=== PATIENT | female | born 1960 | race African-American/Black ===

== ENCOUNTER 2016-08-27 12:22 | Emergency (ER) | payer SELFPAY | END 2016-08-27 13:42 | disposition home or self-care (01) | LOC: EDSEX 12:22 → D.ER 12:22 | DX: L50.9 Urticaria, unspecified (principal); E05.90 Thyrotoxicosis, unspecified without thyrotoxic crisis or storm; K21.9 Gastro-esophageal reflux disease without esophagitis; I10 Essential (primary) hypertension; G47.00 Insomnia, unspecified ==

== ENCOUNTER 2016-08-28 23:18 | Emergency (ER) | payer MEDICAID | END 2016-08-29 01:00 | disposition home or self-care (01) | LOC: EDSEX 23:18 → D.ER 23:18 | DX: T78.40XA Allergy, unspecified, initial encounter (principal); X58.XXXA Exposure to other specified factors, initial encounter; L50.9 Urticaria, unspecified; K21.9 Gastro-esophageal reflux disease without esophagitis; I10 Essential (primary) hypertension; E05.90 Thyrotoxicosis, unspecified without thyrotoxic crisis or storm; G47.00 Insomnia, unspecified ==